=== PATIENT | male | born 1975 | race Caucasian/White ===

== ENCOUNTER 2018-05-03 15:17 | Emergency (ER) | payer MEDICAID ==
[~2018-05-03] VITALS: Ht 175.3 cm; Wt 78.9 kg
[~2018-05-03 15:17] MED LIST: GLU500 PO; LOVA20TA2 PO; [UNRECOGNIZED DRUG - CODE] PO
[2018-05-03 15:28] VITALS: BP 128/84
--- NOTE | 2018-05-03 15:35 | NUR ---
C/O RASH ON BACK THAT STARTED 2 DAYS AGO AND HAS NOW SPREAD TO RIGHT AXILA AND RIGHT CHEST. PT DESCRIBES BURNING PAIN ASSOCIATED WITH RASH. PAIN 6/10, CONSTANT BURNING PAIN. ATTEMPTED TO USE [employer]OMS VOLTAREN TOPICAL CREAM WITH LITTLE RELIEF. HX: DIABETES RX: METFORMIN, GLIPIZIDE
--- NOTE | 2018-05-03 16:47 | NUR ---
DR. KIM AT BEDSIDE.
[2018-05-03 17:00] VITALS: BP 122/83
--- NOTE | 2018-05-03 17:01 | NUR ---
Patient discharged with v/s stable. Written and verbal after care instructions given and explained. Patient alert, oriented and verbalized understanding of instructions. Ambulatory with steady gait. All questions addressed prior to discharge. ID band removed. Patient advised to follow up with PMD. Rx of NORCO, ACYCLOVIR, PREDNISONE, MOTRIN given. Patient educated on indication of medication including possible reaction and side effects. Opportunity to ask questions provided and answered.
== END 2018-05-03 17:01 | disposition home or self-care (01) ==
LOC: MED 15:17
DX: B02.9 Zoster without complications (principal); E11.9 Type 2 diabetes mellitus without complications; Z79.84 Long term (current) use of oral hypoglycemic drugs; Z79.899 Other long term (current) drug therapy
CPT/HCPCS: 99283

== ENCOUNTER 2019-08-12 02:25 | Emergency (ER) | payer MEDICAID ==
[~2019-08-12] VITALS: Ht 175.3 cm; Wt 81.6 kg
[2019-08-12 02:30] VITALS: BP 136/95
--- NOTE | 2019-08-12 02:49 | NUR ---
44 Y/O MALE PRESENTED TO ED C/O LEFT JAW PAIN X 2 WEEKS. PT STATES X 2 DAYS AGO THE PAIN STARTED TO BECOME CONSTANT STABBING/SHARP 10 AND NOW RADIATES TO HIS LEFT EAR. PT - N/V , - BLURRY VISION, - MARY , - APPETITE CHANGES . PT STATES HE WAS TAKING IBUPROFEN AND TYLENOL FOR THE PAIN BUT NOW THAT IS NOT WORKING . PT TOOK NAPROXEN AT 1230 THIS MORNING AND FEELS NO RELIEF. PT DOES NOT WISH TO SIT DOWN AT THIS TIME. PT STANDING IN ROOM. PT PROVIDED A CHAIR IF HE DECIDES HE WANTS TO SIT DOWN. PT BREATHING EVEN AND UNLABORED. PT A/O X4. PMH: DM , GALLBLADDER REMOVED RX: INSULIN AX: NKA
--- NOTE | 2019-08-12 02:58 | NUR ---
DR. BYRNE AT BEDSIDE FOR MSE.
[2019-08-12] MEDS ORDERED: AMOXIL/CLAVULANATE 875/125 MG 1 TAB PO ONE (03:05)
[2019-08-12] MEDS ORDERED: KETOROLAC 60 MG/2 ML VIAL IM ONE (03:05)
[2019-08-12 03:36] VITALS: BP 136/95
--- NOTE | 2019-08-12 03:37 | NUR ---
Patient discharged with v/s stable. Written and verbal after care instructions given and explained. Patient alert, oriented and verbalized understanding of instructions. Ambulatory with steady gait. All questions addressed prior to discharge. ID band removed. Patient advised to follow up with PMD. Rx of CIPRO, AUGMENTIN AND NORCO given. Patient educated on indication of medication including possible reaction and side effects. Opportunity to ask questions provided and answered.
== END 2019-08-12 03:37 | disposition home or self-care (01) ==
LOC: MED 02:25
DX: H66.92 Otitis media, unspecified, left ear (principal); E11.9 Type 2 diabetes mellitus without complications; H60.92 Unspecified otitis externa, left ear; Z79.899 Other long term (current) drug therapy; Z79.84 Long term (current) use of oral hypoglycemic drugs
CPT/HCPCS: 96372; 99283; J1885

== ENCOUNTER 2019-10-14 23:23 | Emergency (ER) | payer MEDICAID ==
[~2019-10-14] VITALS: Ht 170.2 cm; Wt 82.6 kg
[2019-10-14 23:30] VITALS: BP 152/100
--- NOTE | 2019-10-14 23:34 | NUR ---
PT PROVIDING UA. ACCU CHECK: [id number]. AMITAD MADE AWARE.
--- NOTE | 2019-10-14 23:36 | NUR ---
PT AMBULATED TO BED 4 WITH STEADY GAIT.
[2019-10-14] MEDS ORDERED: NACL 0.9% 1,000 ML IV ONE (23:40)
[2019-10-14 23:55] LABS: BASOPHILS % (AUTO) 0.9 % (0.0-2.0); EOSINOPHILS # (AUTO) 0.1 K/uL (0-0.4); EOSINOPHILS % (AUTO) 2.9 % (0.0-4.0); HEMATOCRIT 48.7 % (36-52); HEMOGLOBIN 16.6 g/dL (12.0-18.0); LYMPHOCYTES # (AUTO) 2.1 K/uL (2.0-11.5); MEAN CORPUSCULAR HEMOGLOBIN 30 pg (27-31); MEAN CORPUSCULAR HGB CONC 34 g/dL (33-37); MEAN CORPUSCULAR VOLUME 88.6 fL (80-94); MONOCYTES # (AUTO) 0.4 K/uL (0.8-1.0); MONOCYTES % (AUTO) 9.2 % (1.7-9.3); PLATELET COUNT (AUTO) 211 K/uL (140-450); RED CELL DISTRIBUTION WIDTH 13.6 % (11.6-13.7); WHITE BLOOD COUNT (AUTO) 4.7 K/uL (4.8-10.8)
[2019-10-15 00:15] LABS: ALBUMIN 3.8 g/dL (3.4-5.0); ANION GAP 15.2 (8-16); CARBON DIOXIDE 25.1 mmol/L (21-32); CREATININE 1.5 mg/dL (0.6-1.3); POTASSIUM 4.3 mmol/L (3.5-5.1); TOTAL BILIRUBIN 0.5 mg/dL (0.0-1.0)
--- NOTE | 2019-10-15 00:19 | NUR ---
PT HAS HX OF DIABETES AND IS SUPPOSE TO TAKE METFORMIN AND GLIPIZIDE DAILY. PT IS NOT CHECKING HIS BLOOD SUGAR OR TAKING MEDS REGULARLY. STATES HE IS HOMELESS AND IS UNABLE TO CARE FOR HIS DIABETES ON A DAILY BASIS. C/O POLYURIA, EXCESSIVE THRIST, AND DIZZINESS. DENIES N/V/D. BED IN LOWEST POSITION AND SIDERAIL UP X 1. NKA HX - DM
--- NOTE | 2019-10-15 00:21 | NUR ---
URINE WAS COLLECTED AND TAKEN BY LAB
[2019-10-15 00:48] LABS: APPEARANCE,URINE CLEAR (CLEAR); BILIRUBIN,URINE NEGATIVE (NEGATIVE); BLOOD, URINE NEGATIVE (NEGATIVE); COLOR,URINE YELLOW (YELLOW); LEUKOCYTE ESTERASE ,URINE NEGATIVE (NEGATIVE); NITRITE, URINE NEGATIVE (NEGATIVE); UGLUCOSE 3+ (NEGATIVE)
[2019-10-15] MEDS ORDERED: INSULIN REGULAR, HUMAN 100 UNIT/ML VIAL IVP ONE (00:50)
[2019-10-15 00:58] LABS: RBC,URINE NONE SEEN /HPF (0-5); WBC,URINE NONE SEEN /HPF (0-5)
--- NOTE | 2019-10-15 01:00 | NUR ---
PT RESTING QUIETLY, IV FLUIDS STILL INFUSING, PT CLEAR TO LEAVE AFTER FLUIDS FINISH, PER MD KIM. RESPIRATIONS REGULAR EVEN AND UNLABORED.
[2019-10-15 02:02] VITALS: BP 147/91
--- NOTE | 2019-10-15 02:06 | NUR ---
Patient discharged with v/s stable. Written and verbal after care instructions given and explained. Patient alert, oriented and verbalized understanding of instructions. Ambulatory with steady gait. All questions addressed prior to discharge. ID band removed. Patient advised to follow up with PMD. Rx of GLIPIZIDE AND METFORMIN given. Patient educated on indication of medication including possible reaction and side effects. Opportunity to ask questions provided and answered.
== END 2019-10-15 02:02 | disposition home or self-care (01) ==
LOC: MED 23:23
DX: R53.1 Weakness (principal); E11.9 Type 2 diabetes mellitus without complications; Z90.49 Acquired absence of other specified parts of digestive tract; Z79.899 Other long term (current) drug therapy
CPT/HCPCS: 36415; 80053; 81001; 85025; 96361; 96374; 99283; J1815; J7030